=== PATIENT | male | born 1980 | race American Indian/Alaskan Native ===

== ENCOUNTER 2017-06-27 14:02 | Emergency (ER) | payer SELFPAY ==
[2017-06-27 14:51] VITALS: RESP 18; TEMP 98.6
[2017-06-27] MEDS ORDERED: Tmp-Smz 800 mg-160 mg DS Tab PO STA (15:30)
[2017-06-27 15:45] VITALS: BP 121/63; PULSE 79; O2SAT 100
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
== END 2017-06-27 17:06 | disposition home or self-care (01) ==
LOC: ED 14:02
DX: S60.222A Contusion of left hand, initial encounter (principal); S61.452A Open bite of left hand, initial encounter; Y08.89XA Assault by other specified means, initial encounter; Y93.89 Activity, other specified; Y92.89 Other specified places as the place of occurrence of the external cause